=== PATIENT | male | born 1955 ===

== ENCOUNTER 2021-05-02 04:45 | Day surgery (SDC) | payer OTHER ==
[~2021-05-02 04:45] MED LIST: CELLCEPT500 MG PO; GLUMETZA500 MG PO; PRAVASTATIN SOD20 MG PO; PREDNISON; SYNTHROID88 MCG PO
== END 2021-05-02 13:20 | disposition home or self-care (01) ==
LOC: CIR.AMB 04:45
PROVIDERS: ATTEND Specialist
DX: K40.90 Unilateral inguinal hernia, without obstruction or gangrene, not specified as recurrent (principal); D17.5 Benign lipomatous neoplasm of intra-abdominal organs; Z20.822 Contact with and (suspected) exposure to COVID-19